=== PATIENT | female | born 1990 | race Caucasian/White ===

== ENCOUNTER 2017-10-14 19:47 | Emergency (ER) | payer OTHER ==
[~2017-10-14] VITALS: Ht 167.6 cm; Wt 71.0 kg
[~2017-10-14 19:47] MED LIST: MESA1.2T PO; SERT25TA PO
[2017-10-14 19:52] VITALS: BP 120/90
== END 2017-10-14 20:41 | disposition home or self-care (01) ==
LOC: ED 20:35
DX: S80.861A Insect bite (nonvenomous), right lower leg, initial encounter (principal); L03.115 Cellulitis of right lower limb; W57.XXXA Bitten or stung by nonvenomous insect and other nonvenomous arthropods, initial encounter; Y93.89 Activity, other specified; Y92.89 Other specified places as the place of occurrence of the external cause; Y99.8 Other external cause status
CPT/HCPCS: 99283